=== PATIENT | male | born 1990 | race Caucasian/White ===

== ENCOUNTER 2016-09-01 23:59 | Emergency (ER) | payer BC ==
[2016-09-02 00:04] VITALS: TEMP 98.3; BMI 47.0
[2016-09-02] MEDS ORDERED: PREDNISONE 20 MG TAB PO ONE (00:55)
--- NOTE | 2016-09-02 00:56 | EDPRACDOC ---
- General Information Chief Complaint: Sore Throat Stated Complaint: SORE THROAT & CONGESTION Time Seen by Provider: 09/02/16 00:44 Information Source: Patient Mode Of Arrival: Car Home Medications: Home Medications Ibuprofen Tablet [Motrin] 600 mg PO Q8H PRN 06/11/16 Oxycodone Immediate Release [Oxycodone Immediate Release (OxyIR)] 5 mg PO Q4H PRN 06/11/16 Promethazine HCl [Phenergan] 12.5 mg PO Q6H PRN 06/11/16 Benzonatate [Tessalon Perle] 100 mg PO TID #30 capsule 09/02/16 Prednisone [Deltasone] 20 mg PO BID #10 tablet 09/02/16 Allergies/Adverse Reactions: Allergies Allergy/AdvReac Type Severity Reaction Status Date / Time No Known Allergies Allergy Verified 09/02/16 00:04 - History of Present Illness Onset: one week HPI: SEEN AT URGENT CARE THURSDAY, DIAGNOSED WITH SINUSITIS. SINUSES GETTING BETTER. NOW THROAT PAIN AND COUGH. ON ABX. + SMOKER. ED Past Medical History - History Reviewed Yes Nurses notes reviewed and agree except as marked - Patient Medical History Psychological History: Denies: Depression Systemic History: Denies: Cancer - Family Medical History Reports: Hypertension (PARENTS), Diabetes (GRANDPARENT), Stroke (MAT GRANDMOTHER ), Cardiac Disorders (GRANDPARENTS) - Social Medical History Smoking Status: Heavy tobacco smoker (5 or more cigarettes/day or daily pipe/ cigar) EDM Review of Systems - Review of Systems ROS Negative Except as Marked: Yes All systems reviewed and were negative except as marked Gastrointestinal: No Symptoms Reported Genitourinary: No Symptoms Reported - Physical Exam Constitutional: Alert (Awake), No apparent distress Oriented to: Time, Person, Place Last recorded Vital Signs: Last Vital Signs Temp 98.3 F 09/02/16 00:02 Pulse 111 09/02/16 00:02 Resp 20 09/02/16 00:02 BP 166/94 09/02/16 00:02 Pulse Ox 95 09/02/16 00:02 Oxygen Pulse Oxygen Saturation 95 O2 Device Room Air Oxygen Flow Rate Fraction of Inspired Oxygen ( FIO2) - HEENT Head: Normal ( normocephalic) Eye Exam: Normal (PERRL, EOMI, Sclera white) Oropharynx: Normal (Pharynx:Moist without exudate,Gums-no swelling) Nose: No Symptoms Reported (septum midline) Neck: Normal (FROM, trachea at midline) - Respiratory/Cardiovascular Respiratory: Wheezes Cardiovascular: Normal (RRR without murmur, gallop or rub) - GI Auscultation: Normal (NABS) Palpation: Normal (Soft,No rebound or guarding, non distended) Tenderness: Non tender Crowe's Sign: Negative - Musculoskeletal Back: Normal (Non-Tender) Extremities: Normal (Normal tone, Pulses 2+ No cyanosis or edema, FROM) - Integumentary Skin: Normal, Warm, Dry Lymphatics: Normal (no adenopathy) - Neurologic Memory Impaired: Normal Motor Function: Normal (Normal tone, Pulses 2+ No cyanosis or edema, FROM) Cranial Nerve: Normal (CN II-X11 intact sensation, strength 5/5) Cerebellar: Normal Mood Description: Normal Perception: Normal - Departure Yes I personally saw and evaluated the patient. Disposition: Home Condition: Stable Final Diagnosis: Bronchitis with bronchospasm Instructions: Acute Bronchitis (ED) Education/Counseling Given To: Patient Education/Counseling Given Regarding: Diagnosis Referrals: None,No Provider [Primary Care Provider] - Two Weeks Forms: Excuse Note
[2016-09-02] MEDS ORDERED: ALBUTEROL 6.7 GM MDI INH ONE (00:58)
[2016-09-02 01:14] VITALS: BP 149/86; PULSE 101
== END 2016-09-02 01:13 | disposition home or self-care (01) ==
LOC: ED 23:59
DX: J20.9 Acute bronchitis, unspecified (principal)
CPT/HCPCS: 94640; 99282; J3490

== ENCOUNTER 2016-09-23 20:27 | Observation (INO) | payer BC ==
[2016-09-23 21:23] VITALS: BMI 46.9
[2016-09-23 21:34] LABS: AUTOMATED BASOPHIL 1.1 % (0-2); AUTOMATED EOSINOPHIL 3.5 % (0-5); AUTOMATED LYMPH 25.4 % (17-44); AUTOMATED MONOCYTE 8.6 % (3-10); AUTOMATED NEUTROPHIL 61.4 % (45-76)
[2016-09-23 21:38] LABS: LEUKOCYTES/URINE NEG (NEGATIVE); NITRITE/URINE NEG (NEGATIVE); RBC/URINE 0-2 (0-2); URINE OCCULT BLOOD NEG (NEG/TRACE)
[2016-09-23 21:46] LABS: BLOOD UREA NITROGEN 11 MG/DL (9-20); CALCIUM 9.4 MG/DL (8.4-10.2); CALCULATED OSMOLALITY 262 MOs/Kg (270-290); CHLORIDE 102 mEq/L (98-107); ETOH-MGDL < 10 mg/dL; GLUCOSE 86 mg/dL (70-99); SODIUM LEVEL 137 mEq/L (137-146); TOTAL PROTEIN 7.1 G/DL (6.3-8.2)
[2016-09-23 21:53] LABS: ALL NEG? YES; MDMA* NEG (NEGATIVE); METHAMPHETAMINES NEG (NEGATIVE); OXYCODONE NEG (NEGATIVE)
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
[2016-09-23] MEDS ORDERED: MAGNESIUM HYDROXIDE 30 ML BOTTLE PO PRN (22:36)
[2016-09-23] MEDS ORDERED: ACETAMINOPHEN 325 MG/TAB TABLET PO PRN (22:36)
[2016-09-23] MEDS ORDERED: ZOLPIDEM TARTRATE 5 MG TAB PO PRN (22:36)
[2016-09-23] MEDS ORDERED: ONDANSETRON HCL 4 MG ODT TAB PO PRN (22:36)
[2016-09-23] MEDS ORDERED: LORAZEPAM 1 MG TAB PO PRN (22:36)
[2016-09-23] MEDS ORDERED: IBUPROFEN 400 MG TAB PO PRN (22:36)
[2016-09-23] MEDS ORDERED: Aluminum;Magnesium;Simethicone 30 ML UDC PO PRN (22:36)
[2016-09-24] MEDS ORDERED: NICOTINE 21 MG PATCH TOP SCH (09:00)
[2016-09-24 10:14] VITALS: BP 150/64; PULSE 94; TEMP 98
== END 2016-09-24 10:15 | disposition home or self-care (01) ==
LOC: ED 20:27 → EDINP 22:35 → TUOBSINP 23:25
PROVIDERS: ADMIT Physician Assistant Medical; ATTEND Physician Assistant Medical
DX: R45.851 Suicidal ideations (principal); F32.2 Major depressive disorder, single episode, severe without psychotic features; F17.200 Nicotine dependence, unspecified, uncomplicated
CPT/HCPCS: 36415; 80053; 80307; 81001; 85025; 86592; 99284; G0378; J3490